=== PATIENT | male | born 1965 | race Caucasian/White ===

== ENCOUNTER 2021-11-08 12:41 | Inpatient (IN) | payer OTHER, SELFPAY ==
--- NOTE | 2021-11-08 | ECG_ITS ---
Test Reason : ABD PAIN Blood Pressure : / mmHG Vent. Rate : 087 BPM Atrial Rate : 087 BPM P-R Int : 128 ms QRS Dur : 076 ms QT Int : 398 ms P-R-T Axes : 055 012 022 degrees QTc Int : 478 ms Normal sinus rhythm Normal ECG When compared with ECG of 08-NOV-2021 20:47, No significant change was found Referred By: Calvin De La Garza Electronically Signed By:NORRIS KU MD
--- NOTE | 2021-11-08 | ECG_ITS ---
Test Reason : chest pain Blood Pressure : / mmHG Vent. Rate : 113 BPM Atrial Rate : 113 BPM P-R Int : 116 ms QRS Dur : 076 ms QT Int : 352 ms P-R-T Axes : 060 017 019 degrees QTc Int : 482 ms Sinus tachycardia Nonspecific ST and T wave abnormality Abnormal ECG No previous ECGs available Referred By: Generic ED Physician Electronically Signed By:NORRIS KU MD
--- NOTE | ~2021-11-08 | CT_ITS ---
EXAMINATION: CT ABDOMEN AND PELVIS WITHOUT CONTRAST CLINICAL INFORMATION: Chest pain and left-sided abdominal pain. COMPARISON: No similar priors. TECHNIQUE: Multidetector volumetric imaging was performed from the superior aspect of the liver through the pubic symphysis. Sagittal and coronal reformatted images were obtained on the technologist's workstation. This CT examination was performed using dose optimization techniques as appropriate, variously including the following: *Automated exposure control *Adjustment of mA and/or kV according to patient size (this includes techniques or standardized protocols for targeted exams where dose is matched to indication/reason for exam; i.e. extremities or head) *Use of iterative reconstruction technique DLP: 566 mGy-cm FINDINGS: LUNG BASES: Small left pleural effusion with associated left lower lobe airspace opacities. Trace amount of right-sided pleural fluid. Subsegmental atelectasis. Coronary calcifications. Partially imaged sternotomy wires. Left-sided gynecomastia. Right-sided breast tissue is likely outside of the [id number]. LIVER, GALLBLADDER, AND BILIARY TREE: Questionable nodular contour of the liver and prominence of the caudate which could suggest hepatocellular disease or cirrhosis. Small calcified granulomas in the left hepatic lobe. Too small to characterize subcapsular hypodensity in the left hepatic lobe (6:21). No biliary dilatation. Small calcified stone in the gallbladder neck (6:36). No pericholecystic fat stranding or free fluid. PANCREAS: Unremarkable. SPLEEN: Unremarkable. ADRENAL GLANDS: Unremarkable. KIDNEYS AND URETERS: The kidneys are normal in size, shape, and attenuation. Punctate calculus versus vascular calcification in the lower pole of the left kidney (3:37). No hydronephrosis or hydroureter. No perinephric stranding. BLADDER: Unremarkable. GASTROINTESTINAL TRACT: The stomach and the small bowel are nondilated. There are nonspecific radiodensities projecting over the anterior wall of the stomach (4:148) possibly surgical clips or ingested material. Normal appendix. Diverticulosis without pericolic inflammatory changes. Large stool ball in the rectum. No bowel obstruction. ABDOMINAL WALL: Small fat-containing umbilical hernia. LYMPH NODES: No lymphadenopathy by size criteria. VASCULAR: Atherosclerotic disease. The abdominal aorta is of normal diameter PELVIC VISCERA: Unremarkable. OSSEOUS STRUCTURES: No acute or aggressive osseous abnormalities. Mild thoracolumbar spondylosis. CT/CT abdomen pelvis wo con IMPRESSION: Small left pleural effusion with associated airspace opacities in the left lower lobe which could represent developing pneumonia. However, when evaluating these opacities on the coronal vies there is somewhat a swirling appearance of the adjacent parenchyma and volume loss raising the possibility of round atelectasis. Recommend a short-term follow-up after appropriate treatment to ensure adequate resolution of these findings. Questionable nodular contour of the liver with a prominent caudate lobe which could be related with hepatocellular disease or cirrhosis in the appropriate clinical context. Cholelithiasis but no evidence of acute cholecystitis. Mild diverticulosis without evidence of acute diverticulitis. Large stool within the rectum suggesting constipation.
--- NOTE | ~2021-11-08 | XR_ITS ---
EXAMINATION: XR CHEST CLINICAL INFORMATION: Chest pain. COMPARISON: None TECHNIQUE: 2 views of the chest were obtained. FINDINGS: Sternotomy wires and mediastinal clips. The heart is not enlarged. EKG wires overlie the patient. There are small bilateral pleural effusions, left greater than right with associated airspace opacities in the left lower lobe. No pneumothorax. No acute osseous abnormalities. Thoracic spondylosis. XR/XR chest 2V IMPRESSION: Left greater than right small pleural effusions with associated airspace opacities in the left lower lobe/retrocardiac region which are nonspecific and could be associated with compressive atelectasis, aspiration or developing pneumonia.
[2021-11-08 12:55] VITALS: BP 171/99; PULSE 106; RESP 18; TEMP 36.6; O2SAT 98; BMI 23.4
[2021-11-08 13:44] VITALS: BP 146/99; PULSE 98; RESP 18; TEMP 36.8; O2SAT 98
--- NOTE | 2021-11-08 13:45 | PC.NURSE ---
patient a&ox3, c/o 03/02 chest pain, satellite project site monitor applied, nsr 80-90s, vss, iv inserted, labs drawn, covid swab obtained, call pat within reach, will continue to monitor.
[2021-11-08 13:49] LABS: MANUAL DIFF FLAG NO
[2021-11-08 13:55] LABS: Basophils Percent Auto 0.5 % (0-2); Eosinophils Percent Auto 0.5 % (0-4); Hematocrit 32.3 % (42.0-52.0); Hemoglobin 10.9 g/dl (14.0-18.0); Imm Gran Abs Auto 0.04 X10*3/uL (0.00-0.03); Imm Gran Pct Auto 0.6 % (0.0-0.4); Lymphocytes Absolute Auto 0.5 X10*3/uL (1.2-4.9); Lymphocytes Percent Auto 8.1 % (20-40); Mean Corpuscular HGB Conc 33.7 g/dl (31.0-36.0); Mean Corpuscular Hemoglobin 35.7 pg (27.0-33.0); Mean Corpuscular Volume 105.9 fL (80.0-98.0); Mean Platelet Volume 8.8 fL (9.4-12.4); Monocytes Absolute Auto 0.1 X10*3/uL (0.1-1.2); Neutrophils Absolute Auto 5.8 x10*3/uL (2.0-8.3); Neutrophils Percent Auto 88.3 % (45-73); Platelet Count 104 X10*3/uL (160-400); Red Blood Count 3.05 X10*6/uL (4.60-5.80); White Blood Count 6.6 X10*3/uL (4.8-10.8)
[2021-11-08 14:05] LABS: Prothrombin Time 11.1 SEC (9.9-13.0)
[2021-11-08 14:09] LABS: COVID-19 Test Negative (Negative)
[2021-11-08 14:12] LABS: Troponin-I High Sensitivity 14.2 ng/L (<3.5-35.0)
[2021-11-08 14:13] LABS: Alanine Aminotransferase 9 U/L (0-40); Albumin Level 3.8 g/dL (3.5-5.0); Alkaline Phosphatase 66 U/L (39-117); Anion Gap 13 (12-20); Aspartate Amino Transferase 13 U/L (5-37); Bilirubin Total 1.6 mg/dL (0.0-1.0); Blood Urea Nitrogen 15 mg/dL (9-16); Calcium 8.8 mg/dL (8.4-10.2); Carbon Dioxide 29 mmol/L (22-29); Chloride 100 mmol/L (96-108); Creatinine Clr Calc Pharmacy 26.8; Estimated Glomerular Filt Rate 19; Glucose Random 130 mg/dL (60-115); Magnesium 1.6 mg/dL (1.6-2.6); Potassium 3.4 mmol/L (3.3-5.1); Sodium 139 mmol/L (135-145)
--- NOTE | 2021-11-08 14:34 | ED_ITS ---
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 He reports that the [employer] tractor driver teamster was in the middle of his way to get into his driveway/home and due to his medical history he occasionally will urinate or have bowel movements on himself and he really had to have a bowel movement and h e tried to tell the [employer] tractor driver teamster to move out of his way so he can get into his house and they started to argue although he never got out of the car and unfortunately he had a bowel movement on himself because of this argument. He reports that he developed chest pain shortly after. He also reports abdominal pain and diarrhea. He denies any other symptoms related to this including any dizziness, headaches, neck pain/stiffness, trouble swallowing or breathing, sore throat, jaw pain, radiation of the chest pain, arm pain, paresthesias, palpitations, shortness of breath, dyspnea on exertion, nausea/vomiting, or constipation, recent travel or sick contacts or any rashes or any trauma. He denies any SI/HI/auditory visualizations thoughts of self-injury. He reports that he feels safe at home. He denies any other symptoms complaints or concerns at this time MD complaint: chest pain Pertinent past history: other (see above ) Onset (ago): hour(s) (Started at 11:00 this morning ) Timing of current episode: constant Prior episodes: Yes Onset: other (During an argument with [employer] Field Service Representative ) Pain location: substernal Pain radiation: none Severity: moderate Quality: other (He reports like someone is sitting on my chest . ) Relieving factors: nothing Exacerbating factors: nothing Context: other (See above) Treatment prior to arrival: none Related Data Allergies Allergy/AdvReac Type Severity Reaction Status Date / Time No Known Allergies Allergy Verified 11/08/21 12:54 Review of Systems Review of Systems: Constitutional : No Weight loss, No Fever, No Chills, No Night Sweats, No Fatigue, No Malaise ENT/Mouth : No Hearing loss, No Ear Pain, No Nasal Congestion, No Sinus Pain, No Hoarseness, No sore throat, No Rhinorrhea, No Swallowing Difficulty Eyes: No Eye Pain, No Swelling, No Redness, No Foreign Body, No Discharge, No Vision Changes Cardiovascular : + Chest Pain, No SOB, No Dyspnea on Exertion, No Orthopnea, No Edema, No Palpitations Respiratory : No Cough, No Sputum, No Wheezing, No Smoke Exposure, No Dyspnea Gastrointestinal : + abdominal pain, + Diarrhea, No Nausea, No Vomiting, No Constipation,No Hematochezia, No Melena Genitourinary : no irregular bleeding, No Dysuria, No Urinary Frequency, No Hematuria, No Urinary Incontinence, No Urgency, No Flank Pain, No Urinary Flow Changes, No Hesitancy Musculoskeletal : No joint pain, No Myalgias, No Joint Swelling Skin : No Skin Lesions, No rash Neuro : No Weakness, No Numbness, No Paresthesias, No Loss of Consciousness, No Dizziness, No Headache Psych : No Anxiety/Panic, No Depression, No SI/HI/AH/VH, No Social Issues, Heme/Lymph: No Bruising, No Bleeding,No Lymphadenopathy Endocrine : No Polyuria, No Polydipsia, No Temperature Intolerance Yes all other systems are reviewed and are negative [facility] Past Medical History Attestation statement: The following information was validated with the patient. Medical History Cardiac arrest due to respiratory disorder CRF (chronic renal failure) Pulmonary fibrosis Surgical History H/O heart artery stent Lung transplant status, bilateral Social History Social History Alcohol intake: never Patient Tobacco Use Status: Former Tobacco user Use of substances other than those prescribed or required for medical reasons: No Advance Directives: No Advance Directives Information Provided: Yes Physical Exam Vital Signs: Vital Signs: Last Vital Signs Temp 98.2 F 11/08/21 13:44 Pulse 93 11/08/21 14:54 Resp 18 11/08/21 14:54 BP 174/96 H 11/08/21 14:54 Pulse Ox 100 11/08/21 14:54 BMI result Body Mass Index 23.4 vital signs have been reviewed as normal and appeared to be correct. Blood pressure 171/99. Heart rate 106. Respiration rate normal. Temperature normal. Oxygen saturation normal. Appearance: Alert. Oriented X3. No acute distress. Head: Normal external exam. Normocephalic. Atraumatic. Eyes: PERRLA. EOMI. Conjunctiva and sclera normal. Eyelids normal. ENT: EAC normal. TM's Normal. Pharynx normal. Uvula midline. Moist mucous membranes. Neck: Normal inspection. Neck supple. FROM. No adenopathy. Thyroid Normal. No meningeal signs. No neck mass noted. CVS: Normal heart rate and rhythm. Heart sound normal. Pulses normal throughout. No murmurs/rales/gallops. Respiratory: No respiratory distress. Painless inspiration. Breath sounds normal. No wheezes/rales/rhonchi noted. Chest nontender. No accessory muscle usage noted or decreased air movement noted. Abdomen: Soft and nontender. Bowel sounds normal in all 4 quadrants. No distention noted. No organomegaly noted. No visible injury noted. Back: No CVA tenderness. Full range of motion noted. No rashes/lesion/induration/fluctuance or signs of infection noted. Skin: Skin warm and dry. Normal skin color. Normal skin turgor. No rashes/lesions/lacerations noted. Extremities: No lower extremity edema. No calf tenderness is noted. Extremities exhibit normal range of motion. Extremities nontender. Neuro: Oriented X 3. No motor deficit. No sensory deficit. Reflexes normal. Normal steady gait. No focal neuro deficits noted. CN's II-XII intact bilaterally? Vascular: + radial pulses/+ 2 distal pedal pulses/+2 dorsalis pedis b/l. Normal cap refill. No cyanosis noted to upper extremity nails and lower extremity toes nails. 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 He reports that the [employer] tractor driver teamster was in the middle of his way to get into his driveway/home and due to his medical history he occasionally will urinate or have bowel movements on himself and he really had to have a bowel movement and he tried to tell the [employer] tractor driver teamster to move out of his way so he can get into his house and they started to argue although he never got out of the car and unfortunately he had a bowel movement on himself because of this argument. He reports that he developed chest pain shortly after. He also reports abdominal pain and diarrhea. Plan: Will obtain labs, EKG, chest x-ray, CT scan abdomen pelvis with IV contrast then re-evaluate Reevaluation(s) Reevaluation #1: - we were able to get records from [facility] and compare the patient's labs and it appears that on 10/20/2021 patient had anemia with an H&H of 11.4/35.2 and a platelet count of 140 which is similar when compared to today's lab work here - the last time he had his kidney function checked at [facility] was on 03/14/2021 and revealed that his BUN was 25 and his creatinine was 4.3 which is similar when compared to today. - patient's total bilirubin 1.6. - troponin 14.2 repeat 3 hours later 23.4. - EKG is normal sinus rhythm it is similar compared to prior no acute ischemic changes are noted - COVID swab is negative - chest x-ray revealed left greater than right small pleural effusions with associated airspace opacity in the left lower lobe/retrocardiac region which are nonspecific and could be associated with compressive atelectasis, aspiration or developing pneumonia otherwise no other acute processes were noted although when Dr. Coleman and myself reviewed the chest x-ray it appears that this is consistent with double lung transplant postoperative changes therefore no additional labs indicated for that. - Will consult with Cardiology for possible admission due to patient is still reporting chest pain and his troponin went from 14.2-23.4 Time: 17:13 Reevaluation #2: - I spoke to Dr. Dozier and he reported he does see some ST changes and he is also tachycardic he believes that this can be acute coronary syndrome therefore he recommended placing nitro paste to see if the patient's pain improves if not patient should be admitted with IV heparin if no contraindications. Therefore 1 /2 inch of nitropaste and IV heparin are being placed at this time. Patient will be admitted to the hospitalist service at this time to Dr. Elkins Time: 17:41 MDM - Chest Pain Medical Records Data Attestation: I reviewed the patient's medical records. Lab Data Attestation: I reviewed the patient's lab results. Result diagrams: 11/08/21 13:41 11/08/21 13:41 Labs: Lab Results 11/08/21 11/08/21 11/08/21 Range/Units 13:41 13:41 13:41 WBC 6.6 (4.8-10.8) X10*3/uL RBC 3.05 L (4.60-5.80) X10*6/uL Hgb 10.9 L (14.0-18.0) g/dl Hct 32.3 L (42.0-52.0) % MCV 105.9 H (80.0-98.0) fL MCH 35.7 H (27.0-33.0) pg MCHC 33.7 (31.0-36.0) g/dl RDW 13.0 (11.0-16.0) % Plt Count 104 L (160-400) X10*3/uL MPV 8.8 L (9.4-12.4) fL Immature Gran % (Auto) 0.6 H (0.0-0.4) % Neut % (Auto) 88.3 H (45-73) % Lymph % (Auto) 8.1 L (20-40) % [place] % (Auto) 2.0 (2-11) % Eos % (Auto) 0.5 (0-4) % Baso % (Auto) 0.5 (0-2) % Lymph # (Auto) 0.5 L (1.2-4.9) X10*3/uL [place]craft # (Auto) 0.1 (0.1-1.2) X10*3/uL Eos # (Auto) 0.0 (0.0-0.4) X10*3/uL Baso # (Auto) 0.0 (0.0-0.2) X10*3/uL Abs Immat Gran (auto) 0.04 H (0.00-0.03) X10*3/uL Absolute Neuts (auto) 5.8 (2.0-8.3) x10*3/uL Absolute Nucleated RBC 0.000 (0.0-0.012) X10*3/uL Nucleated RBC % (auto) 0.0 (0.0-0.2) /100WBC PT 11.1 (9.9-13.0) SEC INR 1.0 (0.9-1.1) Sodium 139 (135-145) mmol/L Potassium 3.4 (3.3-5.1) mmol/L Chloride 100 (96-108) mmol/L Carbon Dioxide 29 (22-29) mmol/L Anion Gap 13 (12-20) BUN 15 (9-16) mg/dL Creatinine 3.41 H (0.5-1.4) mg/dL Estim Creat Clear Calc 26.8 Estimated GFR 19 Random Glucose 130 H (60-115) mg/dL Calcium 8.8 (8.4-10.2) mg/dL Magnesium 1.6 (1.6-2.6) mg/dL Total Bilirubin 1.6 H (0.0-1.0) mg/dL AST 13 (5-37) U/L ALT 9 (0-40) U/L Alkaline Phosphatase 66 (39-117) U/L Troponin I High Sens (<3.5-35.0) ng/L Total Protein 7.0 (6.5-8.0) g/dL Albumin 3.8 (3.5-5.0) g/dL COVID-19 (ELISEO) (Negative) COVID-19 Clin Com 11/08/21 11/08/21 11/08/21 Range/Units 13:41 13:41 16:25 WBC (4.8-10.8) X10*3/uL RBC (4.60-5.80) X10*6/uL Hgb (14.0-18.0) g/dl Hct (42.0-52.0) % MCV (80.0-98.0) fL MCH (27.0-33.0) pg MCHC (31.0-36.0) g/dl RDW (11.0-16.0) % Plt Count (160-400) X10*3/uL MPV (9.4-12.4) fL Immature Gran % (Auto) (0.0-0.4) % Neut % (Auto) (45-73) % Lymph % (Auto) (20-40) % Schoolcraft % (Auto) (2-11) % Eos % (Auto) (0-4) % Baso % (Auto) (0-2) % Lymph # (Auto) (1.2-4.9) X10*3/uL Schoolcraft # (Auto) (0.1-1.2) X10*3/uL Eos # (Auto) (0.0-0.4) X10*3/uL Baso # (Auto) (0.0-0.2) X10*3/uL Abs Immat Gran (auto) (0.00-0.03) X10*3/uL Absolute Neuts (auto) (2.0-8.3) x10*3/uL Absolute Nucleated RBC (0.0-0.012) X10*3/uL Nucleated RBC % (auto) (0.0-0.2) /100WBC PT (9.9-13.0) SEC INR (0.9-1.1) Sodium (135-145) mmol/L Potassium (3.3-5.1) mmol/L Chloride (96-108) mmol/L Carbon Dioxide (22-29) mmol/L Anion Gap (12-20) BUN (9-16) mg/dL Creatinine (0.5-1.4) mg/dL Estim Creat Clear Calc Estimated GFR Random Glucose (60-115) mg/dL Calcium (8.4-10.2) mg/dL Magnesium (1.6-2.6) mg/dL Total Bilirubin (0.0-1.0) mg/dL AST (5-37) U/L ALT (0-40) U/L Alkaline Phosphatase (39-117) U/L Troponin I High Sens 14.2 23.4 D (<3.5-35.0) ng/L Total Protein (6.5-8.0) g/dL Albumin (3.5-5.0) g/dL COVID-19 (ELISEO) Negative (Negative) COVID-19 Clin Com See Note Imaging Data Chest x-ray: Attestation: I personally reviewed and interpreted this imaging study as follows: Radiologist's impression: FINDINGS: Sternotomy wires and mediastinal clips. The heart is not enlarged. EKG wires overlie the patient. There are small bilateral pleural effusions, left greater than right with associated airspace opacities in the left lower lobe. No pneumothorax. No acute osseous abnormalities. Thoracic spondylosis. XR/XR chest 2V IMPRESSION: Left greater than right small pleural effusions with associated airspace opacities in the left lower lobe/retrocardiac region which are nonspecific and could be associated with compressive atelectasis, aspiration or developing pneumonia. ECG Data ECG #1: Attestation: I personally reviewed and interpreted this ECG as follows: ECG interpretation date: 11/08/21 ECG interpretation time: 12:47 Interpretation: Sinus tachycardia ventricular rate of [address] and T-wave abnormalities no acute ischemic changes are noted. Similar when compared to prior EKG done at [facility] that we have a copy of on 04/25/2021. Critical Care Time Critical Care Time Critical Care Time: Yes Total Critical Care Time: 60 Attestation: I personally attest to this time spent taking care of the patient Discharge Plan Discharge Clinical Impression: Chest pain, Elevated troponin, ACS (acute coronary syndrome) Patient Disposition: Admitted As Inpatient
[2021-11-08 14:54] VITALS: BP 174/96; PULSE 93; RESP 18; O2SAT 100
--- NOTE | 2021-11-08 14:56 | PC.NURSE ---
patient a&ox3, vss, cardiac monitor technician intact nsr 90s, pt has lt av fistula + bruit/thrill, continues to complain of pain in chest, awating test results, will continue to monitor.
[2021-11-08 16:57] LABS: Troponin-I High Sensitivity 23.4 ng/L (<3.5-35.0)
[2021-11-08] MEDS: Nitroglycerin 2 % Oint 1 GM Packet 0.5 INCH TRANSDERMA (17:58)
[2021-11-08 18:00] VITALS: BP 167/99; PULSE 98; RESP 18; O2SAT 97
--- NOTE | 2021-11-08 18:32 | PHA.MEDREC ---
Pharmacy Consult ? Medication Reconciliation Pharmacy has completed the medication reconciliation.
--- NOTE | 2021-11-08 19:16 | P.HPHOSP_ITS ---
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 Patient reported that this morning around 08/03/2030 he had an argument with the [employer] van driver; followed the head chest pain located in the center of the chest nonradiating no associated lightheadedness dizziness sweating nausea or vomiting. Chest pain was pressure-like in nature, 8/10 in intensity; waited for few hours to see if it improves; as if not improving decided to come to the ER f or further evaluation. Mentioned that chest pain significantly reduced but still has mild discomfort in the chest. Also reports that she has chronic epigastric discomfort secondary to his Pascual fundoplication done in the past. Denies any fever chills cough. Denies any GI symptoms. Review of all other systems is negative except mentioned above ER course: ER team mentioned the patient's EKG was nonischemic, unchanged from prior; patient continued to have mild chest pain; concern for unstable angina. discussed with Cardiology Dr. Dozier; patient's troponin noted to be 14 followed by 23; cardiology recommended heparin drip and admission to [facility]. Of note: I explained in detail to the patient about his current health situation, treatment plan. Patient also made aware that we do not have catheterization facility available. Agreed to get admitted. [facility] Medical History Cardiac arrest due to respiratory disorder CRF (chronic renal failure) Pulmonary fibrosis Pertinent family history: Father: CVA Brother: CAD Sister: Valvular heart disease Surgical History H/O heart artery stent Lung transplant status, bilateral Social History Alcohol intake: never Patient Tobacco Use Status: Former Tobacco user Use of substances other than those prescribed or required for medical reasons: No Advance Directives: No Advance Directives Information Provided: Yes Meds Allergies Allergy/AdvReac Type Severity Reaction Status Date / Time No Known Allergies Allergy Verified 11/08/21 12:54 Active Medications: Current Medications Acetaminophen (Acetaminophen 325 Mg Tablet) 650 mg PO Q6H PRN PRN Reason: Pain, Mild (Pain Scale 1-3) Heparin Sodium (Porcine) (Heparin Sodium,Porcine 5,000 Unit/Ml Vial) 3,100 unit 40 unit/kg (3100 unit) IVPUSH PROTOCOL BOLUS PRN; Protocol PRN Reason: 40 unit/kg - Heparin Protocol Heparin Sodium (Porcine) (Heparin Sodium,Porcine 5,000 Unit/Ml Vial) 6,300 unit 80 unit/kg (6300 unit) IVPUSH PROTOCOL BOLUS PRN; Protocol PRN Reason: 80 unit/kg - Heparin Protocol Heparin Sodium/Sodium Chloride () 25,000 unit in 250 mls @ 0 mls/hr IVCONT .Q0M PRATEEK; Protocol Melatonin (Melatonin 3 Mg Tablet) 6 mg PO BEDTIME PRN PRN Reason: Insomnia Nitroglycerin (Nitroglycerin 0.4 Mg Tab.Subl) 0.4 mg SUBLINGUAL Q5MX3 PRN PRN Reason: Chest Pain Pharmacy Consult (Consult Rx Perform Med Rec) 1 each MISCELLANE ONCE PRN PRN Reason: Consult order Senna (Sennosides 8.6 Mg Tablet) 17.2 mg PO BEDTIME PRN PRN Reason: Constipation Sodium Chloride (0.9 % Sodium Chloride Flush 3 Ml Syringe) 3 ml IVFLUSH QSHIFT [facility] Home Medications Medication Instructions Recorded Confirmed Last Taken Type aspirin 81 mg chewable tablet 1 tab PO DAILY 11/08/21 11/08/21 11/07/21 History atovaquone 750 mg/5 mL oral 10 ml PO DAILY 11/08/21 11/08/21 11/07/21 History suspension azithromycin 250 mg tablet 1 tab PO MOWEFR 11/08/21 11/08/21 11/06/21 History calcitriol 0.25 mcg capsule 1 cap PO DAILY 11/08/21 11/08/21 11/07/21 History carvedilol 3.125 mg tablet 1 tab PO BID 11/08/21 11/08/21 11/08/21 History citalopram 20 mg tablet 1 tab PO DAILY 11/08/21 11/08/21 11/07/21 History cyclosporine 100 mg capsule 1 cap PO Q12H 11/08/21 11/08/21 11/08/21 History famotidine 20 mg tablet 1 tab PO BEDTIME 11/08/21 11/08/21 11/07/21 History folic acid 1 mg tablet 1 tab PO DAILY 11/08/21 11/08/21 11/07/21 History furosemide 40 mg tablet 1 tab PO SUTUTHSA@0900 11/08/21 11/08/21 11/07/21 History prednisone 5 mg tablet 1 tab PO DAILY 11/08/21 11/08/21 11/07/21 History rosuvastatin 5 mg tablet 1 tab PO DAILY 11/08/21 11/08/21 11/07/21 History valganciclovir 50 mg/mL oral 9 ml PO MOWEFR 11/08/21 11/08/21 11/06/21 History solution Physical Exam Vital Signs and Narrative: Vital Signs: Last Vital Signs Temp 98.2 F 11/08/21 13:44 Pulse 98 11/08/21 18:00 Resp 18 11/08/21 18:00 BP 167/99 H 11/08/21 18:00 Pulse Ox 97 11/08/21 18:00 BMI result Body Mass Index 23.4 Gen: Appears be in no acute distress HEENT: NCAT, Moist mucosa. Pulmonary: Vesicular breath sounds, fair air entry CVS: Normal S1-S2 Abdomen: BS+, Soft, Nontender Extremities: Warm well perfused Neuro: Alert and awake. Results Labs CBC and Chem 7: 11/08/21 13:41 11/08/21 13:41 Labs: Laboratory Results - last 24 hr 11/08/21 11/08/21 11/08/21 13:41 13:41 13:41 MCV 105.9 H MCH 35.7 H MCHC 33.7 RDW 13.0 Plt Count 104 L MPV 8.8 L Immature Gran % (Auto) 0.6 H Neut % (Auto) 88.3 H Lymph % (Auto) 8.1 L [place] % (Auto) 2.0 Eos % (Auto) 0.5 Baso % (Auto) 0.5 Lymph # (Auto) 0.5 L [place] # (Auto) 0.1 Eos # (Auto) 0.0 Baso # (Auto) 0.0 Abs Immat Gran (auto) 0.04 H Absolute Neuts (auto) 5.8 Absolute Nucleated RBC 0.000 Nucleated RBC % (auto) 0.0 PT 11.1 INR 1.0 Anion Gap 13 Estim Creat Clear Calc 26.8 Estimated GFR 19 Random Glucose 130 H Calcium 8.8 Magnesium 1.6 Total Bilirubin 1.6 H AST 13 ALT 9 Alkaline Phosphatase 66 Total Protein 7.0 Albumin 3.8 COVID-19 (ELISEO) COVID-19 Clin Com 11/08/21 13:41 MCV MCH MCHC RDW Plt Count MPV Immature Gran % (Auto) Neut % (Auto) Lymph % (Auto) [place] % (Auto) Eos % (Auto) Baso % (Auto) Lymph # (Auto) [place] # (Auto) Eos # (Auto) Baso # (Auto) Abs Immat Gran (auto) Absolute Neuts (auto) Absolute Nucleated RBC Nucleated RBC % (auto) PT INR Anion Gap Estim Creat Clear Calc Estimated GFR Random Glucose Calcium Magnesium Total Bilirubin AST ALT Alkaline Phosphatase Total Protein Albumin COVID-19 (EILSEO) Negative COVID-19 Clin Com See Note Imaging Radiologist's Impressions: Impressions Chest X-Ray 11/08/21 14:25 IMPRESSION: Left greater than right small pleural effusions with associated airspace opacities in the left lower lobe/retrocardiac region which are nonspecific and could be associated with compressive atelectasis, aspiration or developing pneumonia. Abdomen/Pelvis CT 11/08/21 16:48 IMPRESSION: Small left pleural effusion with associated airspace opacities in the left lower lobe which could represent developing pneumonia. However, when evaluating these opacities on the coronal vies there is somewhat a swirling appearance of the adjacent parenchyma and volume loss raising the possibility of round atelectasis. Recommend a short-term follow-up after appropriate treatment to ensure adequate resolution of these findings. Questionable nodular contour of the liver with a prominent caudate lobe which could be related with hepatocellular disease or cirrhosis in the appropriate clinical context. Cholelithiasis but no evidence of acute cholecystitis. Mild diverticulosis without evidence of acute diverticulitis. Large stool within the rectum suggesting constipation. 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 Unstable angina: Troponin-14->23->26 EKG nonischemic Patient on nitro patch Continue home aspirin statin , beta-maynor Cardiology aware of the patient. Echocardiogram Continue heparin drip Morphine p.r.n. Upon follow-up around 23:30 patient's chest pain resolved. Follow-up EKG unchanged. Patient dated developed diarrhea Nausea/vomiting/diarrhea: Patient had loose stools. Denies any blood in the stool. Will send for stool studies. Reports diffuse abdominal cramping. Denies any chest pain. On exam abdomen is soft and nontender. Supportive care. History of lung transplant in 2019 secondary to pulmonary fibrosis: Patient denies any cough, sputum production, fevers. Chest x-ray shows small pleural effusion, opacities-likely atelectasis. Will hold antibiotics for now Will continue home cyclosporine, prednisone, valganciclovir, atovaquone, azithromycin Follow the fever curve, respiratory symptoms if any. Will be low threshold to start antibiotics. History of depression: Continue home citalopram History of hypertension: Continue home carvedilol History of ESRD: Patient on hemodialysis. Nephrology consult. Patient still makes urine. Continue home Lasix GI prophylaxis: Pepcid DVT prophylaxis: Patient on heparin drip Code status: Full code. Quality Stroke Does the patient have a stroke diagnosis?: No VTE Prior VTE?: No VTE Risk Level:: Medical - moderate - high VTE Device Contraindication: Treatment Not Indicated VTE Drug Contraindication: N/A - Med Ordered
[2021-11-08] MEDS: Heparin Sodium,Porcine/1/2NS 25,000 UNIT/250 ML IV.SOLN 9.42 UNIT IVCONT (19:42)
--- NOTE | 2021-11-08 20:44 | ECG_ITS ---
Test Reason : CHEST PAIN Blood Pressure : / mmHG Vent. Rate : 098 BPM Atrial Rate : 098 BPM P-R Int : 116 ms QRS Dur : 076 ms QT Int : 372 ms P-R-T Axes : 046 009 023 degrees QTc Int : 474 ms Normal sinus rhythm Nonspecific ST and T wave abnormality Abnormal ECG When compared with ECG of 08-NOV-2021 12:47, No significant change was found Referred By: Yogesh Gagnon Electronically Signed By:NORRIS KU MD
[2021-11-08] MEDS: Famotidine 20 MG TABLET PO (21:24)
[2021-11-08] MEDS: Azithromycin 250 MG TABLET PO (21:24)
[2021-11-08] MEDS: carvediloL 3.125 MG TABLET PO (21:25)
[2021-11-08] MEDS: Acetaminophen 325 MG TABLET 650 MG PO (21:27)
--- NOTE | 2021-11-08 21:27 | PC.NURSE ---
patient medicated per order by this float nurse, pt c/o 05/02 headache- given prn tylenol for pain
[2021-11-08 21:43] LABS: Troponin-I High Sensitivity 26.5 ng/L (<3.5-35.0)
[2021-11-08 23:29] VITALS: BP 177/106; PULSE 94; RESP 22; TEMP 36.7; O2SAT 98
[2021-11-08] MEDS: ondansetron HCL 4 MG/2 ML VIAL IVPUSH (23:57)
[2021-11-08] MEDS: Morphine Sulfate 2 MG/ML CARTRIDGE 1 MG IVPUSH (23:57)
[2021-11-09 01:52] LABS: PTT Heparin Drip 61.9 SEC (53-77.9)
[2021-11-09 04:55] LABS: MANUAL DIFF FLAG NO
[2021-11-09 05:05] LABS: Basophils Percent Auto 0.7 % (0-2); Eosinophils Percent Auto 0.7 % (0-4); Hematocrit 30.1 % (42.0-52.0); Hemoglobin 9.9 g/dl (14.0-18.0); Imm Gran Abs Auto 0.03 X10*3/uL (0.00-0.03); Imm Gran Pct Auto 0.5 % (0.0-0.4); Lymphocytes Absolute Auto 0.6 X10*3/uL (1.2-4.9); Lymphocytes Percent Auto 9.7 % (20-40); Mean Corpuscular HGB Conc 32.9 g/dl (31.0-36.0); Mean Corpuscular Hemoglobin 35.7 pg (27.0-33.0); Mean Corpuscular Volume 108.7 fL (80.0-98.0); Mean Platelet Volume 9.1 fL (9.4-12.4); Monocytes Absolute Auto 0.1 X10*3/uL (0.1-1.2); Monocytes Percent Auto 2.3 % (2-11); Neutrophils Absolute Auto 5.2 x10*3/uL (2.0-8.3); Neutrophils Percent Auto 86.1 % (45-73); Platelet Count 97 X10*3/uL (160-400); Red Blood Count 2.77 X10*6/uL (4.60-5.80); Red Cell Distribution Width 13.1 % (11.0-16.0); White Blood Count 6.1 X10*3/uL (4.8-10.8)
[2021-11-09 05:26] LABS: Anion Gap 16 (12-20); Blood Urea Nitrogen 21 mg/dL (9-16); Calcium 8.8 mg/dL (8.4-10.2); Carbon Dioxide 24 mmol/L (22-29); Chloride 100 mmol/L (96-108); Creatinine Clr Calc Pharmacy 19.3; Estimated Glomerular Filt Rate 13; Glucose Random 98 mg/dL (60-115); Potassium 4.2 mmol/L (3.3-5.1); Sodium 136 mmol/L (135-145)
[2021-11-09 06:09] VITALS: BP 169/93; PULSE 87; RESP 18; TEMP 36.8; O2SAT 98
--- NOTE | 2021-11-09 06:59 | PC.NURSE ---
No rate change, confirmed with Gavi DANIEL at bedside. Order placed for next PTT.
[2021-11-09 07:02] VITALS: BP 166/93; PULSE 90; RESP 18; O2SAT 98
[2021-11-09] MEDS: 0.9 % Sodium Chloride Flush 3 ML SYRINGE IVFLUSH (07:04)
[2021-11-09 08:18] VITALS: BP 157/93; PULSE 101; RESP 19; TEMP 36.8; O2SAT 99
--- NOTE | 2021-11-09 08:22 | PC.NURSE ---
Pt received from main ER, just moved to overflow: Pt AOX4 and offers no complaints. NSR noted and lungs clear. Pt abd soft and non-tender. Pt remains on heparin drip. Fistula noted to Ayde, pending dialysis sometime today.
--- NOTE | 2021-11-09 08:30 | CA_ITS ---
Transthoracic Echocardiogram Patient (Last, First, Middle): Vernon Wei, Gender: Male Date of : 1965 Age: 56 Procedure Date: 11/09/2021 Procedure Type: Transthoracic Echocardiogram Location: ER Height: 182.88 cm Weight: 78.47 kg BSA: 2.00 m2 Heart Rate: bpm BP: 169 / 93 mmHg Gum Worker: MIKE Barnett MD: Calvin De La Garza MD Legislators: Raul Dozier MD Symptoms: Chest pain Study Quality: Fair/Contrast ECG Rhythm: Sinus Conclusions: - 1. Normal LV systolic function with grade 1 diastolic dysfunction with possible wall motion abnormality of the basal inferior inferoseptal wall 2. Mild mitral annular calcification with normal cardiac valvular Doppler 3. Normal RV systolic pressure 4. No gross pericardial effusion Findings Procedure Information Contrast agent, definity, is being given per protocol without apparent complications. Left Ventricle Normal left ventricular size, thickness, and systolic function. The visually estimated ejection fraction is between 55-60%. Spectral Doppler is indicative of an impaired relaxation filling pattern. E/E prime ratio is <8, consistent with normal filling pressures. Evidence suggests grade I (mild) diastolic dysfunction. Wall Motion Rest Echo Findings The basal inferior and basal inferoseptal segments are hypokinetic. All other scored wall segments showed normal motion. Right Ventricle Normal right ventricular cavity size and systolic function. Atria The left atrium is mildly dilated. The atrial septum has a dumbell appearance. There is no evidence of interatrial shunt. The right atrium is normal in size. Aortic Valve Normal aortic valve structure and function. There is no aortic valve stenosis. There is no aortic valve regurgitation. Mitral Valve There is mild anterior and posterior mitral leaflet thickening. There is mild mitral annular calcification. There is trace mitral valve regurgitation. There is no mitral valve stenosis. Pulmonic Valve The pulmonic valve was not well visualized. Tricuspid Valve Likely normal tricuspid valve structure and function. There is mild tricuspid valve regurgitation. The right ventricular systolic pressure is normal. The right ventricular systolic pressure is 22 mmHg. Normal right atrial pressure. There is no evidence of pulmonary hypertension. Great Vessels All visible segments of the aorta are normal in size. The pulmonary artery was not well visualized. Venous The inferior vena cava is normal in size and collapses greater than 50% with inspiration. Pericardium/Pleural There is no evidence of pericardial effusion. Prior Study Comparison No prior study available for comparison. Measurements 2D Linear Measurements IVSd: 1.11 0.6-0.9/0.6-1.0 cm LVIDd: 4.36 3.9-5.3/4.2-5.9 cm LVIDd Index: 2.18 2.4-3.2/2.2-3.1 cm/m2 LVIDs: 3.30 2.0-3.6 cm LVPWd: 1.07 0.7-1.1 cm Ao Root: 3.40 2.1-3.5 cm LA Diam: 3.50 2.7-3.8/3.0-4.0 cm LAIDs Index: 1.75 1.5-2.3 cm/m2 LV Mass: 204.72 67-162/88-224 g LV Mass Index: 102.36 43-95/49-115 g/m2 LVOT Diam: 2.40 3.0+(-)1.3 cm 2D Systolic Function EF 4C: 58.60 >55% EF 2C: 56.40 >55% EF BiP: 56.20 >55% Mitral Valve MV Pk E: 0.61 MV PK A: 0.99 MV Decel Time: 115.00 E/A: 0.60 E'Lateral: 13.10 E'Medial: 6.42 E/E' Med: 9.50 E/E' Lat: 4.70 PHT: 34.00 MVA PHT: 6.47 Decel [place]: 5.32 Aortic Valve AoV Pk Pietro: 1.08 AoV Mn Pietro: 0.74 AoV VTI: 0.21 AoV Pk Grad: 5.00 Aov Mn Grad: 2.00 NAV Cont.VTI: 3.99 LVOT LVOT Pk Pietro: 0.90 LVOT Mn Pietro: 0.60 LVOT VTI: 0.18 LVOT Pk Grad: 3.00 LVOT Mn Grad: 2.00 LVOT Diam: 2.40 LVOT Area: 4.52 Diastolic Function MV Pk E: 0.61 MV Pk A: 0.99 E/A: 0.60 E'Medial: 6.42 E/E' Med: 9.50 E' Laterial: 13.10 E/E' Lat: 4.70 Right Ventricle TAPSE (mm): 18.00 TVS' Pietro: 8.92 Tricuspid Valve TR Pk Pietro: 2.17 TR Pk Grad: 19.00 RA Press: 3.00 RVSP: 22.00 Great Vessels Aorta Ao Root-2D: 3.40 2.0-3.7 cm Ao Asc: 3.30 2.1-3.4 cm Updated in Other Vendor System with Status of Final Raul Dozier MD electronically signed on 11/09/2021 12:12:59 PM with status of Final
[2021-11-09] MEDS: Furosemide 40 MG TABLET PO (09:00)
[2021-11-09] MEDS: Atovaquone 750 MG/5 ML ORAL.SUSP 1500 MG PO (09:00)
[2021-11-09] MEDS: Folic Acid 1 MG TABLET PO (09:00)
[2021-11-09] MEDS: Escitalopram Oxalate 10 MG TABLET PO (09:00)
[2021-11-09] MEDS: Aspirin 81 MG TAB.CHEW PO (09:00)
[2021-11-09] MEDS: calcitrioL 0.25 MCG CAPSULE PO (09:00)
[2021-11-09] MEDS: carvediloL 3.125 MG TABLET PO (09:00)
[2021-11-09] MEDS: Atorvastatin Calcium 20 MG TABLET PO (09:00)
[2021-11-09] MEDS: predniSONE 5 MG TABLET PO (09:01)
--- NOTE | 2021-11-09 09:50 | PC.NURSE ---
Pt's home meds (cyclosporin and valcyclovir) given to central pharmacy for verifcation and future admin during this hospital stay
--- NOTE | 2021-11-09 09:55 | PM.CNCAR ---
History of Present Illness History of Present Illness Date of Service: 11/09/21 Requesting physician: Calvin De La Garza Chief complaint: acute coronary syndrome Narrative: I was consulted on [place] for symptoms of sudden-onset chest discomfort. Also consulted from the ED yesterday and was told that patient was not having ongoing chest pain and therefore we decided to admit him to [facility]. He has been chest pain-free since yesterday. Initially on presentation with EKG he had sinus tachycardia and diffuse ST sagging. Since then his EKG is normalized as his heart rate is settle down and his chest pain is resolved. His troponin was minimally elevated. He was admitted for acute coronary syndrome and started on IV heparin yesterday. He is on aspirin, statins and beta-blockers. He has not had similar chest pain in the last few years. Sees Cardiology usually on annual basis. Denies any recent exertional symptoms. 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 Subsequently developed idiopathic pulmonary fibrosis underwent lung transplantation in 2019 at [facility]. He also then developed progressive renal failure due to immunosuppressive therapy as per him and is currently on dialysis, Saturday and Fridays. He takes all his medications regularly. And he is in generally good functional status. He said he recently has not been exercising due to the weather and the pandemic. Review of Systems Constitutional: Constitutional: Reports no additional constitutional complaints Eyes: Eyes: Reports no additional eye complaints Cardiovascular: Cardiovascular: Reports chest pain at rest, Denies claudication, Denies lightheadedness, Denies Loss of Consciousness, Denies palpitations and Denies dyspnea Respiratory: Respiratory: Reports no additional respiratory complaints and Denies dyspnea Gastrointestinal: Gastrointestinal: Reports no additional gastrointestinal complaints Genitourinary: Genitourinary: Reports no additional male genitourinary complaints Musculoskeletal: Musculoskeletal: Reports no additional musculoskeletal complaints Integumentary/Breasts: Skin/Breast: Reports system reviewed and no additional complaints, except as docu Neurologic: Reports system reviewed and no additional complaints, except as documented Psychiatric: Psychiatric: Reports no additional psychiatric complaints Endocrine: Endocrine: Reports no additional endocrine complaints and Denies palpitations Hematologic/Lymphatic: Hematologic/Lymphatic: Reports no additional hematologic/lymphatic complaints Allergic/Immunologic: Allergic/Immunologic: Reports no additional allergic/immunologic complaints [facility] Past Medical History Medical History Cardiac arrest due to respiratory disorder CRF (chronic renal failure) End stage renal disease on dialysis Pulmonary fibrosis Surgical History Surgical History H/O heart artery stent Lung transplant status, bilateral Social History Social History Alcohol intake: never Patient Tobacco Use Status: Former Tobacco user Use of substances other than those prescribed or required for medical reasons: No Advance Directives: No Advance Directives Information Provided: Yes Meds Allergies Allergy/AdvReac Type Severity Reaction Status Date / Time No Known Allergies Allergy Verified 11/08/21 12:54 Active Medications: Current Medications Acetaminophen (Acetaminophen 325 Mg Tablet) 650 mg PO Q6H PRN PRN Reason: Pain, Mild (Pain Scale 1-3) Last Admin: 11/08/21 21:27 Dose: 650 mg Documented by: Aspirin (Aspirin 81 Mg Tab.Chew) 81 mg PO DAILY [facility] Last Admin: 11/09/21 09:00 Dose: 81 mg Documented by: Atorvastatin Calcium (Atorvastatin Calcium 20 Mg Tablet) 20 mg PO DAILY [facility] Last Admin: 11/09/21 09:00 Dose: 20 mg Documented by: Atovaquone (Atovaquone 750 Mg/5 Ml Oral.Susp) 1,500 mg PO DAILY [facility] Last Admin: 11/09/21 09:00 Dose: 1,500 mg Documented by: Azithromycin (Azithromycin 250 Mg Tablet) 250 mg PO MOWEFR [facility] Last Admin: 11/08/21 21:24 Dose: 250 mg Documented by: Calcitriol (Calcitriol 0.25 Mcg Capsule) 0.25 mcg PO DAILY [facility] Last Admin: 11/09/21 09:00 Dose: 0.25 mcg Documented by: Carvedilol (Carvedilol 3.125 Mg Tablet) 3.125 mg PO BID [facility]; Protocol Last Admin: 11/09/21 09:00 Dose: 3.125 mg Documented by: Escitalopram Oxalate (Escitalopram Oxalate 10 Mg Tablet) 10 mg PO DAILY [facility] Last Admin: 11/09/21 09:00 Dose: 10 mg Documented by: Famotidine (Famotidine 20 Mg Tablet) 20 mg PO BEDTIME [facility] Last Admin: 11/08/21 21:24 Dose: 20 mg Documented by: Folic Acid (Folic Acid 1 Mg Tablet) 1 mg PO DAILY [facility] Last Admin: 11/09/21 09:00 Dose: 1 mg Documented by: Furosemide (Furosemide 40 Mg Tablet) 40 mg PO SUTUTHSA@0900 [facility]; Protocol Last Admin: 11/09/21 09:00 Dose: 40 mg Documented by: Heparin Sodium (Porcine) (Heparin Sodium,Porcine 5,000 Unit/Ml Vial) 3,100 unit 40 unit/kg (3100 unit) IVPUSH PROTOCOL BOLUS PRN; Protocol PRN Reason: 40 unit/kg - Heparin Protocol Heparin Sodium (Porcine) (Heparin Sodium,Porcine 5,000 Unit/Ml Vial) 6,300 unit 80 unit/kg (6300 unit) IVPUSH PROTOCOL BOLUS PRN; Protocol PRN Reason: 80 unit/kg - Heparin Protocol Heparin Sodium/Sodium Chloride () 25,000 unit in 250 mls @ 0 mls/hr IVCONT .Q0M [facility]; Protocol Last Titration: 11/09/21 06:56 Dose: 12 units/kg/hr, 9.42 mls/hr Documented by: Melatonin (Melatonin 3 Mg Tablet) 6 mg PO BEDTIME PRN PRN Reason: Insomnia Morphine Sulfate (Morphine Sulfate 2 Mg/Ml Cartridge) 1 mg IVPUSH Q4H PRN; Protocol PRN Reason: Breakthrough Pain Last Admin: 11/08/21 23:57 Dose: 1 mg Documented by: Nitroglycerin (Nitroglycerin 0.4 Mg Tab.Subl) 0.4 mg SUBLINGUAL Q5MX3 PRN PRN Reason: Chest Pain Patient Own Med ( Cyclosporine 100 Mg Capsule) 1 each PO Q12H [facility] Patient Own Med ( Valganciclovir 50 Mg /Ml Recon Soln) 9 each PO MoWeFr@1630 [facility] Pharmacy Consult (Consult Rx Perform Med Rec) 1 each MISCELLANE ONCE PRN PRN Reason: Consult order Prednisone (Prednisone 5 Mg Tablet) 5 mg PO DAILY [facility] Last Admin: 11/09/21 09:01 Dose: 5 mg Documented by: Senna (Sennosides 8.6 Mg Tablet) 17.2 mg PO BEDTIME PRN PRN Reason: Constipation Sodium Chloride (0.9 % Sodium Chloride Flush 3 Ml Syringe) 3 ml IVFLUSH QSHIFT [facility] Last Admin: 11/09/21 07:04 Dose: 3 ml Documented by: Home Medications Medication Instructions Recorded Confirmed Last Taken Type aspirin 81 mg chewable tablet 1 tab PO DAILY 11/08/21 11/08/21 11/07/21 History atovaquone 750 mg/5 mL oral 10 ml PO DAILY 11/08/21 11/08/21 11/07/21 History suspension azithromycin 250 mg tablet 1 tab PO MOWEFR 11/08/21 11/08/21 11/06/21 History calcitriol 0.25 mcg capsule 1 cap PO DAILY 11/08/21 11/08/21 11/07/21 History carvedilol 3.125 mg tablet 1 tab PO BID 11/08/21 11/08/21 11/08/21 History citalopram 20 mg tablet 1 tab PO DAILY 11/08/21 11/08/21 11/07/21 History cyclosporine 100 mg capsule 1 cap PO Q12H 11/08/21 11/08/21 11/08/21 History famotidine 20 mg tablet 1 tab PO BEDTIME 11/08/21 11/08/21 11/07/21 History folic acid 1 mg tablet 1 tab PO DAILY 11/08/21 11/08/21 11/07/21 History furosemide 40 mg tablet 1 tab PO SUTUTHSA@0900 11/08/21 11/08/21 11/07/21 History prednisone 5 mg tablet 1 tab PO DAILY 11/08/21 11/08/21 11/07/21 History rosuvastatin 5 mg tablet 1 tab PO DAILY 11/08/21 11/08/21 11/07/21 History valganciclovir 50 mg/mL oral 9 ml PO MOWEFR 11/08/21 11/08/21 11/06/21 History solution Physical Exam Vital Signs: Vital Signs: Last Vital Signs Temp 98.2 F 11/09/21 08:18 Pulse 101 H 11/09/21 08:18 Resp 19 11/09/21 08:18 BP 157/93 H 11/09/21 08:18 Pulse Ox 99 11/09/21 08:18 BMI result Body Mass Index 23.4 Const: General: cooperative, comfortable, no acute distress, alert and awake Nutritional Appearance: average body habitus Orientation/consciousness: patient oriented x3 Limitations: no limitations HENMT: Head: Yes normocephalic and Yes atraumatic Neck: Neck: Yes trachea midline, Yes supple and Yes no JVD Chest: Chest palpation & inspection: normal inspection of the chest and other ( well-healed will sternotomy scar) Resp: Effort & Inspection: normal respiratory effort Auscultation: clear to auscultation bilaterally Cardio: Jugular venous distension: no JVD Palpation: normal PMI Rate: regular rate Rhythm: regular rhythm Heart sounds: S1 normal heart sound present, S2 normal heart sound present, no click, no gallops, no murmurs and no rubs GI: Auscultation: normal bowel sounds Skin: General skin exam: no rashes or lesions noted Neuro: General: patient oriented x3 and no focal motor deficits Extrem: General: No no clubbing, cyanosis or edema and Yes AV fistula ( left upper arm) Objective Labs and Meds Result diagrams: 11/09/21 04:25 11/09/21 04:25 Lab results: Laboratory Results - last 24 hr 11/08/21 11/08/21 11/08/21 13:41 13:41 13:41 WBC 6.6 RBC 3.05 L Hgb 10.9 L Hct 32.3 L MCV 105.9 H MCH 35.7 H MCHC 33.7 RDW 13.0 Plt Count 104 L MPV 8.8 L Immature Gran % (Auto) 0.6 H Neut % (Auto) 88.3 H Lymph % (Auto) 8.1 L [place] % (Auto) 2.0 Eos % (Auto) 0.5 Baso % (Auto) 0.5 Lymph # (Auto) 0.5 L [place] # (Auto) 0.1 Eos # (Auto) 0.0 Baso # (Auto) 0.0 Abs Immat Gran (auto) 0.04 H Absolute Neuts (auto) 5.8 Absolute Nucleated RBC 0.000 Nucleated RBC % (auto) 0.0 PT 11.1 INR 1.0 aPTT Heparin Protocol Sodium 139 Potassium 3.4 Chloride 100 Carbon Dioxide 29 Anion Gap 13 BUN 15 Creatinine 3.41 H Estim Creat Clear Calc 26.8 Estimated GFR 19 Random Glucose 130 H Calcium 8.8 Magnesium 1.6 Total Bilirubin 1.6 H AST 13 ALT 9 Alkaline Phosphatase 66 Troponin I High Sens Total Protein 7.0 Albumin 3.8 COVID-19 (ELISEO) COVID-19 Clin Com 11/08/21 11/08/21 11/08/21 13:41 13:41 16:25 WBC RBC Hgb Hct MCV MCH MCHC RDW Plt Count MPV Immature Gran % (Auto) Neut % (Auto) Lymph % (Auto) [place] % (Auto) Eos % (Auto) Baso % (Auto) Lymph # (Auto) [place] # (Auto) Eos # (Auto) Baso # (Auto) Abs Immat Gran (auto) Absolute Neuts (auto) Absolute Nucleated RBC Nucleated RBC % (auto) PT INR aPTT Heparin Protocol Sodium Potassium Chloride Carbon Dioxide Anion Gap BUN Creatinine Estim Creat Clear Calc Estimated GFR Random Glucose Calcium Magnesium Total Bilirubin AST ALT Alkaline Phosphatase Troponin I High Sens 14.2 23.4 D Total Protein Albumin COVID-19 (ELISEO) Negative COVID-19 [employer] See Note 11/08/21 11/09/21 11/09/21 21:17 01:32 04:25 WBC 6.1 RBC 2.77 L Hgb 9.9 L Hct 30.1 L MCV 108.7 H MCH 35.7 H MCHC 32.9 RDW 13.1 Plt Count 97 L MPV 9.1 L Immature Gran % (Auto) 0.5 H Neut % (Auto) 86.1 H Lymph % (Auto) 9.7 L [place] % (Auto) 2.3 Eos % (Auto) 0.7 Baso % (Auto) 0.7 Lymph # (Auto) 0.6 L [place] # (Auto) 0.1 Eos # (Auto) 0.0 Baso # (Auto) 0.0 Abs Immat Gran (auto) 0.03 Absolute Neuts (auto) 5.2 Absolute Nucleated RBC 0.000 Nucleated RBC % (auto) 0.0 PT INR aPTT Heparin Protocol 61.9 Sodium Potassium Chloride Carbon Dioxide Anion Gap BUN Creatinine Estim Creat Clear Calc Estimated GFR Random Glucose Calcium Magnesium Total Bilirubin AST ALT Alkaline Phosphatase Troponin I High Sens 26.5 Total Protein Albumin COVID-19 (ELISEO) COVID-19 [employer] Com 11/09/21 04:25 WBC RBC Hgb Hct MCV MCH MCHC RDW Plt Count MPV Immature Gran % (Auto) Neut % (Auto) Lymph % (Auto) [place] % (Auto) Eos % (Auto) Baso % (Auto) Lymph # (Auto) [place] # (Auto) Eos # (Auto) Baso # (Auto) Abs Immat Gran (auto) Absolute Neuts (auto) Absolute Nucleated RBC Nucleated RBC % (auto) PT INR aPTT Heparin Protocol Sodium 136 Potassium 4.2 D Chloride 100 Carbon Dioxide 24 Anion Gap 16 BUN 21 H Creatinine 4.74 H* Estim Creat Clear Calc 19.3 Estimated GFR 13 Random Glucose 98 Calcium 8.8 Magnesium Total Bilirubin AST ALT Alkaline Phosphatase Troponin I High Sens Total Protein Albumin COVID-19 (ELISEO) COVID-19 Clin Com Imaging Radiologist's impression: Impressions Chest X-Ray 11/08/21 14:25 IMPRESSION: Left greater than right small pleural effusions with associated airspace opacities in the left lower lobe/retrocardiac region which are nonspecific and could be associated with compressive atelectasis, aspiration or developing pneumonia. Abdomen/Pelvis CT 11/08/21 16:48 IMPRESSION: Small left pleural effusion with associated airspace opacities in the left lower lobe which could represent developing pneumonia. However, when evaluating these opacities on the coronal vies there is somewhat a swirling appearance of the adjacent parenchyma and volume loss raising the possibility of round atelectasis. Recommend a short-term follow-up after appropriate treatment to ensure adequate resolution of these findings. Questionable nodular contour of the liver with a prominent caudate lobe which could be related with hepatocellular disease or cirrhosis in the appropriate clinical context. Cholelithiasis but no evidence of acute cholecystitis. Mild diverticulosis without evidence of acute diverticulitis. Large stool within the rectum suggesting constipation. Assessment and Plan (1) ACS (acute coronary syndrome): Status: Acute patient presents with symptoms consistent with acute coronary syndrome with KEISHA risk score of at least 3. he has comorbidities of end-stage renal disease and anemia. He is status post lung transplant but currently not having any limitations related to the same. We discussed about management of this including invasive approach versus conservative approach. Given his general good functional status, should pursue invasive approach given his age. This was discussed with him in details. He understands and is agreeable to the same. Will set up for transfer to [facility] for cardiac catheterization. Risks, benefits, alternatives 2nd open to the procedure were discussed. Continue IV heparin drip. Continue aspirin therapy. Continue high-intensity statin therapy. Increase Coreg to 6.25 mg b.i.d. and add nitropaste for better blood pressure control. Patient will be transferred once bed is available. Thank you for allowing us to partake in his care Procedures Date of Service Date of Service: 11/09/21
--- NOTE | 2021-11-09 09:59 | HE.PHANOTE ---
RE Patient own meds Cyclosporine in patient own bin in RN super (ED overflow) pyxsis. Valgancyclovir in RX fridge
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
[2021-11-09 10:32] VITALS: BP 164/98; PULSE 92; RESP 18; O2SAT 98
--- NOTE | 2021-11-09 11:25 | MHC.CM.PN ---
Patient transferred to [facility] before he could be seen by case management.
[2021-11-09 11:26] LABS: PTT Heparin Drip 59.7 SEC (53-77.9); PTT Heparin Drip 60.1 SEC (53-77.9)
--- NOTE | 2021-11-09 12:40 | PC.NURSE ---
Nurse to nurse report given to FREDY Reyna at [facility] in M5, Rm 31. ([phone]). Pending medic transport ~[phone]. Pt remains stable with out any complaints. RN will continue to monitor.
--- NOTE | 2021-11-09 14:21 | PC.NURSE ---
ALS at bedside for transpot to [facility] M5, Rm 31 at this time. Pt remains stable and vitals WNL.
== END 2021-11-09 14:30 | disposition short-term general hospital (02) | DRG 198 ==
LOC: HO.ED 17:43 → HO.EDOVER 19:18
PROVIDERS: Internal Medicine; Physician Assistant Medical; Admitting Provider Hospitalist; Emergency Provider Emergency Medicine; PCP Internal Medicine; Visit Provider Physician Assistant Medical
DX: I24.9 Acute ischemic heart disease, unspecified (principal); I13.11 Hypertensive heart and chronic kidney disease without heart failure, with stage 5 chronic kidney disease, or end stage renal disease; Z94.2 Lung transplant status; N18.6 End stage renal disease; D63.1 Anemia in chronic kidney disease; Z86.74 Personal history of sudden cardiac arrest; I25.110 Atherosclerotic heart disease of native coronary artery with unstable angina pectoris; Z99.2 Dependence on renal dialysis; Z20.822 Contact with and (suspected) exposure to COVID-19; Z86.73 Personal history of transient ischemic attack (TIA), and cerebral infarction without residual deficits; Z79.52 Long term (current) use of systemic steroids; Z79.82 Long term (current) use of aspirin; Z79.899 Other long term (current) drug therapy
CPT/HCPCS: 36415; 71046; 74176; 80048; 80053; 83735; 84484; 85025; 85610; 85730; 87635; 93005; 93306; 96365; 96375; 99285; 99291; J2270; J2405; Q9957